=== PATIENT | female | born 1970 | race Caucasian/White ===

== ENCOUNTER 2024-03-20 04:01 | Emergency (ER) | payer SELFPAY ==
[~2024-03-20] VITALS: Ht 157.5 cm; Wt 60.0 kg
[2024-03-20 05:00] VITALS: BP 164/82; PULSE 112; RESP 18; TEMP 98.6; O2SAT 99
== END 2024-03-20 08:00 | disposition left against medical advice (07) ==
LOC: ER 04:01
DX: F41.0 Panic disorder [episodic paroxysmal anxiety] (principal); Z53.21 Procedure and treatment not carried out due to patient leaving prior to being seen by health care provider